=== PATIENT | male | born 1940 | race Caucasian/White ===

== ENCOUNTER 2017-07-03 14:08 | Observation (INO) | payer OTHER, MEDICARE ==
[~2017-07-03] VITALS: Ht 188 cm; Wt 109.1 kg
[2017-07-03 14:19] VITALS: BP 120/69; PULSE 59; RESP 16; O2SAT 97
[2017-07-03 14:32] LABS: BASOPHILS % (AUTO) 0 % (0-3); EOSINOPHILS % (AUTO) 1.2 % (0-5); MONOCYTES % (AUTO) 6.7 % (4-12); Mean Corpuscular Volume 93.7 fL (81-100); NEUTROPHILS % (AUTO) 71.8 % (40-74); Platelet Count 192 bil/L (150-400)
[2017-07-03 14:46] LABS: INR 2.86 ratio
--- NOTE | 2017-07-03 14:48 | ED.REPORT ---
HPI-Syncope Date of Service Jul 03, 2017 ED Provider: Chantel Villareal History of Present Illness: passed out at drive in on [email or web address]. did not have lunch. diabetic, on metformin. denies diaphorsis positive nausea. coumadin 5 mg daily except saturday and saturday takes 2.5 INR on Saturday was 2.8 was in the range has a-fib. oanh is primary care in [facility]. Is working on selling family home, then will return. out briefly. Woke to someone asking him if he was ok. WAs not feeling well before episode but did not sit down. Nursing Notes Stated Complaint: SYNCOPE Chief Complaint: General Complaint Nursing Notes Reviewed: Yes Allergies: Coded Allergies: Contrast Media (Verified Allergy, Mild, 07/03/17) Scheduled Allopurinol (Allopurinol) 300 Mg Tablet 300 MG PO DAILY Aspirin (Aspirin) 81 Mg Tablet 81 MG PO DAILY Flecainide Acetate (Flecainide Acetate) 100 Mg Tablet 100 MG PO BID Levothyroxine (Levothyroxine) 75 Mcg Tablet 75 MCG PO DAILY Metformin ER (Metformin ER) 1,000 Mg Tablet 1,000 MG PO BIDWM Metoprolol Succinate ER (Metoprolol Succinate ER) 50 Mg Tab.er.24h 50 MG PO DAILYWD Rosuvastatin Calcium (Crestor) 40 Mg Tablet 40 MG PO DAILY Tamsulosin (Flomax) 0.4 Mg Capsule 0.4 MG PO QPM Valsartan (Valsartan) 320 Mg Tablet 320 MG PO DAILY Warfarin Sodium (Warfarin Sodium) 5 Mg Tablet 5 MG PO ALL OTHER DAYS Warfarin Sodium (Warfarin Sodium) 2.5 Mg Tablet 2.5 MG PO , SAT General Time Seen by Provider: 13:00 Chief Complaint Collapsed suddenly Hx Obtained From: Patient Onset Occurred: Just prior to arrival Symptom Duration: Since onset Past Medical History Past Medical History Reports: Diabetes mellitus, Stroke (2013) Reports: Atrial fibrillation Past Surgical History vas, hernia, carpal tunnel Smoking History Never Smoker Social History Alcohol Use: Denies alcohol use Drug Use: Denies drug use Other Social History: Occupation lives in [facility] Ambulatory Status Independent Review of Systems Basic Review of Systems : No dysuria, No frequency Allergy / Immune: No allergy Physical Exam Initial Vital Signs Vital Signs (First) Date Time Temp Pulse Resp B/P Pulse Ox O2 Delivery O2 Flow Rate FiO2 07/03/17 14:19 36.6 59 16 120/69 97 Room Air Initial VS: Reviewed, Vital signs normal Head / Eyes: Atraumatic, Normocephalic, PERRL ENT: Mucous membranes moist, Conjunctiva normal, No scleral icterus Neck: Supple, Non-tender, Full range of motion Abdomen / GI: Soft, Non-tender, No guarding, No rebound, No distention Back: No CVA tenderness Lymphatic: No lymphadenopathy Upper Extremities: Vascular intact, Neuro intact, No swelling, No tenderness Skin: Warm, Dry, No cyanosis Psychiatric: Mood/affect normal, Behavior normal, Normal thought content General/Constitutional: Awake, Alert, No acute distress, Well appearing, Well developed, Well hydrated, Well nourished, Cooperative, Not toxic appearing has large abrasion on posterior head Respiratory / Chest: Atraumatic, Breath sounds NL, Breath sounds = bilat, No respiratory distress, No rales, No rhonchi, No wheezing Cardiovascular: Heart rate NL, Regular rhythm, Heart sounds NL, No gallop Lower Extremity / Pelvis / MS: Atraumatic, Inspection NL, Full range of motion , No swelling Neurologic: Oriented X3, Speech NL, No motor deficits, No sensory deficits, CN II - XII intact, Reflexes equal bilat, Cerebellar NL, Memory NL, Gait NL ENT: Atraumatic, Airway patent, Mucous membranes moist, Pharynx NL, No peritonsillar abscess Interpretation & Diagnostics Lab Results Interpretation Result Diagram: 07/04/17 0630 07/04/17 0630 Test 07/03/17 14:28 White Blood Count 8.1th/mm3 (3.8-10.1) Red Blood Count 4.44mil/mm3 (4.40-5.80) Mean Corpuscular Volume 93.7fL (81-100) Mean Corpuscular Hemoglobin 32.0pg (27.0-35.0) Mean Corpuscular Hemoglobin Concent 34.1% (32.0-37.0) Red Cell Distribution Width 13.2% (12.3-15.4) Platelet Count 192bil/L (150-400) Neutrophils (%) (Auto) 71.8% (40-74) Lymphocytes (%) (Auto) 19.9% (14-46) Monocytes (%) (Auto) 6.7% (4-12) Eosinophils (%) (Auto) 1.2% (0-5) Basophils (%) (Auto) 0% (0-3) Prothrombin Time 31.3sec (8.1-12.5) Prothromb Time International Ratio 2.86ratio Total Bilirubin 0.7mg/dL (0.0-1.2) Aspartate Amino Transf (AST/SGOT) 26U/L (0-50) Alanine Aminotransferase (ALT/SGPT) 23U/L (0-44) Alkaline Phosphatase 61U/L (25-160) Troponin T < 0.010ug/L (0.0-0.011) Total Protein 6.8g/dL (6.4-8.4) Albumin 4.1g/dL (3.4-5.0) Thyroid Stimulating Hormone (TSH) 2.750uIU/mL (0.450-4.500) CT Head Interpretation PROCEDURE: CT BRAIN WITHOUT CONTRAST ([id number]) INDICATIONS: FALL ON COUMADIN TECHNIQUE: Noncontrast 4.5 mm thick angled axial sections acquired from the foramen magnum to the vertex, with coronal reformats. COMPARISON: None. FINDINGS: Image quality: Excellent. CSF spaces: Basal cisterns are patent. No extra-axial fluid collections. The ventricles are symmetric in size and shape. Brain: No intracranial bleeds or masses. There is a 30 mm diameter subacute versus chronic infarct within the left temporoparietal lobe. There is cerebral volume loss for age, with resultant ventricular and sulcal prominence. There are periventricular and deep white matter chronic small vessel ischemic changes. There is intracranial internal carotid artery atherosclerosis. Skull and face: Calvarium and visualized facial bones appear intact, without suspicious lesions. Subgaleal hematoma overlies the right superior parietal calvarium with no evidence of underlying acute calvarial nor intracranial process. Sinuses: Chronic mucoperiosteal thickening involves the right maxillary sinus. Sinuses and mastoids are otherwise clear. IMPRESSION: 1. No acute intracranial abnormality. 2. 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 3. Right maxillary sinusitis. Dictated by: Toña Campos M.D. on 07/03/2017 at 15:22 Approved by: Toña Campos M.D. on 07/03/2017 at 15:23 Procedures Laceration Management Time: 14:00 Consent / Setup / Site Prep: Informed consent provided, Consent from patient , Hand hygiene observed, Stand sterile technique Wound Length: 3 cm Local Anesthesia: Lidocaine w epi 1%, 5cc, 27g needle Digital Block: No Wound Preparation: Normal saline Undermining / Margins: Flaps aligned Repair Skin: Rolla # Sutures - Skin: 6 Post-Procedure / Complications: Antibiotic oint applied, Dressing applied, No complications, Condition improved, Tolerated procedure well, Patient stable Re-Eval/Medical Decision Med Decision/Clinical Course 77 year old male with episode of syncope earlier today. Patient feel he regained conscious quickly. Patient lives in [facility] and is here getting the family home ready to sell. On coumadin for A fib. States he takes 14 other medication of which he does not remember. INR at 2.8. CT shows old infarct. Troponin is negative admit for monitoring. No sign of acute coronary process. Discharge & Departure Impression: Primary Impression: Syncope and collapse Disposition: ADMITTED TO HOSPITAL EDSupervising Provider for APC: Eliazar Merlos MD Attending Statement Discussed patient with LINDSAY Villareal. I evaluated the patient independently and agree with plan as above. In brief 77-year-old male history of CVA in the past on Coumadin presenting status post syncopal event and head trauma. His CT shows subacute versus chronic CVA. He will be admitted for syncopal workup stroke workup and monitoring. copies to: OTHER,PHYSICIAN Chantel Villareal Jul 03, 2017 14:47 Eliazar Merlos MD Jul 03, 2017 16:02 , Hand hygiene observed, Stand sterile technique Wound Length: 3 cm Local Anesthesia: Lidocaine w epi 1%, 5cc, 27g needle Digital Block: No Wound Preparation: Normal saline Undermining / Margins: Flaps aligned Repair Skin: Rolla # Sutures - Skin: 6 Post-Procedure / Complications: Antibiotic oint applied, Dressing applied, No complications, Condition improved, Tolerated procedure well, Patient stable Re-Eval/Medical Decision Med Decision/Clinical Course 77 year old male with episode of syncope earlier today. Patient feel he regained conscious quickly. Patient lives in [facility] and is here getting the family home ready to sell. On coumadin for A fib. States he takes 14 other medication of which he does not remember. INR at 2.8. CT shows old infarct. Troponin is negative admit for monitoring. No sign of acute coronary process. Discharge & Departure Impression: Primary Impression: Syncope and collapse Disposition: ADMITTED TO HOSPITAL EDSupervising Provider for APC: Eliazar Merlos MD Attending Statement Discussed patient with LINDSAY Villareal. I evaluated the patient independently and agree with plan as above. In brief 77-year-old male history of CVA in the past on Coumadin presenting status post syncopal event and head trauma. His CT shows subacute versus chronic CVA. He will be admitted for syncopal workup stroke workup and monitoring. copies to: OTHER,PHYSICIAN Chantel Villareal Jul 03, 2017 14:47 Eliazar Merlos MD Jul 03, 2017 16:02
--- NOTE | 2017-07-03 15:25 | DRSVH ---
PROCEDURE: CT BRAIN WITHOUT CONTRAST ([id number]) INDICATIONS: FALL ON COUMADIN TECHNIQUE: Noncontrast 4.5 mm thick angled axial sections acquired from the foramen magnum to the vertex, with c oronal reformats. COMPARISON: None. FINDINGS: Image quality: Excellent. CSF spaces: Basal cisterns are patent. No extra-axial fluid collections. The ventricles are symmet rosi in size and shape. Brain: No intracranial bleeds or masses. There is a 30 mm diameter subacute versus chronic infarct within the left temporoparietal lobe. There is cerebral volume loss for age, with resultant ventricul ar and sulcal prominence. There are periventricular and deep white matter chronic small vessel ische lelo changes. There is intracranial internal carotid artery atherosclerosis. Skull and face: Calvarium and visualized facial bones appear intact, without suspicious lesions. Salter bgaleal hematoma overlies the right superior parietal calvarium with no evidence of underlying acute calvarial nor intracranial process. Sinuses: Chronic mucoperiosteal thickening involves the right maxillary sinus. Sinuses and mastoids a re otherwise clear. IMPRESSION: 1. No acute intracranial abnormality. 2. 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 3. Right maxillary sinusitis. Dictated by: Toña Campos M.D. on 07/03/2017 at 15:22 Approved by: Toña Campos M.D. on 07/03/2017 at 15:23
[2017-07-03 16:25] VITALS: BP 142/77; PULSE 79; RESP 20; O2SAT 94
[2017-07-03] MEDS ORDERED: ROSU40TA PO (18:44)
[2017-07-03] MEDS ORDERED: WARF2.5T82 PO (18:44)
[2017-07-03] MEDS ORDERED: LEVO75TA4 PO (18:44)
[2017-07-03] MEDS ORDERED: ALLO300T2 PO (18:44)
[2017-07-03] MEDS ORDERED: ASPI-973 PO (18:44)
[2017-07-03] MEDS ORDERED: VALS320T12 PO (18:44)
[2017-07-03] MEDS ORDERED: METF-496 PO (18:44)
[2017-07-03] MEDS ORDERED: METO-272 PO (18:44)
[2017-07-03] MEDS ORDERED: TAMS0.4C98 PO (18:44)
[2017-07-03] MEDS ORDERED: WARF5TAB7 PO (18:44)
[2017-07-03] MEDS ORDERED: FLEC100T2 PO (18:44)
[2017-07-03 19:51] VITALS: BP 143/73; PULSE 63; RESP 19; O2SAT 100
[2017-07-03] MEDS ORDERED: Polyethylene Glycol (PEG) 17 Gm Powder PO PRN (19:55)
[2017-07-03] MEDS ORDERED: Alum-Mag Hydrox-Simeth 30 mL Suspension PO PRN (19:55)
[2017-07-03] MEDS ORDERED: Ondansetron 2 mg/mL 2 mL Inj IVPUSH PRN (19:55)
[2017-07-03 20:00] VITALS: BP 143/73; PULSE 63; RESP 19; O2SAT 100
[2017-07-03 20:16] VITALS: BP 155/80; PULSE 60; RESP 18; O2SAT 98
--- NOTE | 2017-07-03 22:53 | NUR ---
Admit to room 3023@2100 with syncope. Pain 1 VSS Pulse 58 97% on RA. Oriented to room and POC on whiteboard.
--- NOTE | 2017-07-03 23:24 | PCM.HPMED ---
Subjective Date of Service Jul 03, 2017 Primary Provider: Admitting Physician: Jeremias Jean MD Primary Care Physician: Other,Physician Attending Physician: Jeremias Jean MD Chief Complaint: Syncopal event with head trauma on Coumadin History of Present Illness: 77-year-old gentleman with 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 Patient reports he was feeling "not right" which he interpreted as having low blood sugar. He says he went to lean forward on the counter and remembers waking up with somebody sitting next to him asking if he was okay. He has never had a syncopal event before. He did hit his head and has an abrasion on his superior occiput. He denied having any chest pain, shortness of breath, lightheadedness or dizziness, no nausea vomiting or diarrhea but did state he felt "weird" in his stomach prior to him losing consciousness. He is a resident of [facility] he is up in the area to sell his home on [address] [facility], he denies being out in the sun for long periods of time or doing strenuous work. The last few days he states he has been having difficulty urinating, urine is passing is dark in color and has a very pungent odor. He states he drank plenty of water did not go long periods without consuming anything. On presentation to the emergency department pulse were stable. Hematology's unremarkable, BUN 32, glucose 127, otherwise CMP unremarkable. Troponin negative. INR 2.8 EKG: Heart rate 54, sinus rhythm, NM interval 236 QTC 458, normal axis, no signs of acute infarct or ischemia. Head CT negative for acute bleed, "subacute versus chronic left temporoparietal lobe infarct." Patient to be admitted for observation with repeat head CT in the morning given head trauma from ground-level fall while therapeutic on warfarin. Review of Systems: A comprehensive review of systems was conducted with the patient and found to be negative except as above in the history of presenting illness. Allergies Coded Allergies: Contrast Media (Verified Allergy, Mild, 07/03/17) Home Medications Allopurinol (Allopurinol) 300 Mg Tablet 300 MG PO DAILY Aspirin (Aspirin) 81 Mg Tablet 81 MG PO DAILY Flecainide Acetate (Flecainide Acetate) 100 Mg Tablet 100 MG PO BID Levothyroxine (Levothyroxine) 75 Mcg Tablet 75 MCG PO DAILY Metformin ER (Metformin ER) 1,000 Mg Tablet 1,000 MG PO BIDWM Metoprolol Succinate ER (Metoprolol Succinate ER) 50 Mg Tab.er.24h 50 MG PO DAILYWD Rosuvastatin Calcium (Crestor) 40 Mg Tablet 40 MG PO DAILY Tamsulosin (Flomax) 0.4 Mg Capsule 0.4 MG PO QPM Valsartan (Valsartan) 320 Mg Tablet 320 MG PO DAILY Warfarin Sodium (Warfarin Sodium) 5 Mg Tablet 5 MG PO ALL OTHER DAYS Warfarin Sodium (Warfarin Sodium) 2.5 Mg Tablet 2.5 MG PO TUES, SAT PMH CVA Atrial fibrillation on anticoagulation Hyperlipidemia Hypertension BPH Diabetes type II non-insulin using Surgical History Bilateral hip replacement Family History Father "circulation failure" at 65 Mom large cell carcinoma at age 65 Social History Occupation: [employer] Hx Alcohol Use: No Hx Substance Use: No Hx Tobacco Use: No Smoking Status: Never Smoker Additional Information Lives in [facility] in the area attempting to sell their family home on [address] [facility] Exam Vital Signs Vital Sign - Last Date Time Temp Pulse Resp B/P Pulse Ox O2 Delivery O2 Flow Rate FiO2 07/03/17 20:16 36.4 60 18 155/80 98 Room Air Exam General: Standing in room pacing. HEENT: Normocephalic, hemostatic abrasion to occipital superior scalp, dressed, mucous membranes moist, poor dentition, neck supple without lymphadenopathy. Cardiovascular: Regular rate and rhythm, no clicks murmurs rubs, peripheral pulses 2/4 equal bilaterally Pulmonary: Clear to auscultation bilaterally, no W/R/R. Abdominal: Rotund, Soft to palpation, bowel sounds present 4, no hepatosplenomegaly. Negative rebound. Extremities: No edema appreciated. No tenderness, asymmetry. Neuro: Neurologically grossly intact, strength is equal bilaterally upper and lower extremities. Cranial nerves II through XII grossly intact. MSK: Gait is normal, able to move extremities on their own volition, strength 5 out of 5 equal bilaterally to upper and lower extremities. Lab and Diagnostics Result Diagram: 07/03/17 1428 07/03/17 1428 X-Rays, CTs and MRIs Head CT noncontrast performed 07/03/2017 IMPRESSION: 1. No acute intracranial abnormality. 2. 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 3. Right maxillary sinusitis. Dictated by: Toña Campos M.D. on 07/03/2017 at 15:22 12-lead ECG EKG: Heart rate 54, sinus rhythm, NM interval 236 QTC 458, normal axis, no signs of acute infarct or ischemia. Assessment & Plan 77-year-old man with history of CVA, atrial fibrillation, diabetes type II non- insulin using an witnessed syncopal event with loss of consciousness less than 5 minutes while ordering lunch with resultant head trauma, negative head CT in the context of therapeutic INR. Acute witnessed Syncopal event loss of consciousness less than 5 minutes, present on admission, active Etiology includes cardiogenic, metabolic/endocrine, and hypovolemic during patient's medications are flecainide, being outside during the day in the summer heat, and description of feeling "weird" which he attributes to low blood sugar. He is also being treated for hypothyroidism which status of his unknown EKG showed first-degree heart block, bradycardia, possibly due to daily flecainide and metoprolol Blood glucose 127 and electrolytes were normal, recheck in the a.m. Repeat head CT noncontrast in the a.m. to assess for bleed due to therapeutic INR Troponin was negative. Hold aspirin until second CT demonstrates no head bleed First-degree heart block with bradycardia, present on admission, active NM interval 236 ms. Cannot say this is asymptomatic given his syncopal event. Repeat EKG in the morning before receiving a.m. flecainide and metoprolol Consider adjusting medications patient remains in heart block and bradycardic, instructed to follow-up with regional sales representative as an outpatient. Chronic atrial fibrillation, present on admission, stable Patient is in sinus bradycardia, [id number] records not available to assess if this is chronic INR therapeutic, Warfarin dosed by pharmacy At this time plan is to continue home medications flecainide metoprolol however as above EKG prior to receiving morning dose, follow-up with outpatient cardiology Ground-level fall resulting in head trauma. Present on admission. Active Witnessed ground-level fall, resulting in abrasion of occiput, therapeutic INR Head CT negative, with repeat CT as above Monitor overnight for any neurologic change suggesting intracranial bleed. Chronic hypertension, present on admission, active Initial blood pressure 120/69, this has risen to up to 155/80 at time of this documentation. Continue antihypertensive valsartan, and metoprolol. Chronic diabetes mellitus type II, non-insulin using, present on admission, active Patient is on metformin 1000 mg twice a day, serum glucose 127 in the ER. Chronic BPH, present on admission, active Patient describes increasing difficulty urinating, smaller volumes, increased frequency, darker color, and worsening smell. On tamsulosin 0.4 mg every afternoon Urine analysis, complete ordered. Chronic hyperlipidemia, present on admission, active Presumed stable Continue rosuvastatin. History of CVA, present on admission, stable No deficits found on today's exam Continue secondary prevention medications: Aspirin, rosuvastatin, warfarin. GI prophylaxis not indicated Pain management as needed DVT prophylaxis: Patient has therapeutic INR Patient is admitted to observational status with anticipated length of stay less than 2 minutes, based on exam findings, and anticipated complications. CODE STATUS discussed with patient, patient states he wants to be DNR/DNI. Conversation included use of any limited interventions, or modifications to ACLS , patient declined all. Pain Evaluation: Adequate Pain Control GI Prophylaxis: Not indicated VTE Prophylaxis: Theraputic Anticoag with Warfarin Resuscitation Status: DNR/DNI:Do Not Resuscitate/Intubate Attending Statement The patient was seen and examined together with Dr. Brambila on 07/03 and I agree with the history, exam and plan as outlined in the note above. Jaylen Elizondo DO Jul 03, 2017 20:41 Jeremias Jean MD Jul 03, 2017 23:38
[2017-07-04] VITALS (8 sets, daily range): BP systolic 141–168; BP diastolic 59–83; PULSE 49–63; RESP 14–16; O2SAT 96–97
[2017-07-04] MEDS ORDERED: METFORMIN 1000 MG PO SCH (08:00)
[2017-07-04] MEDS ORDERED: VALSARTAN 320 MG PO SCH (08:30)
[2017-07-04] MEDS: metFORMIN ER 500 mg ER24 Tablet PO SCH ×2 (08:45→18:07)
[2017-07-04 10:20] LABS: APPEARANCE,URINE CLEAR (CLEAR,HAZY); COLOR,URINE YELLOW (YELLOW); OCCULT BLOOD,URINE SMALL (NEGATIVE); UROBILINOGEN,URINE NORMAL (NORMAL)
--- NOTE | 2017-07-04 11:07 | NUR ---
Social Work-initial assessment: Data:See initial assessment. Pt is a 77 y/o male who was admitted on 07/03/17 for syncope per H&P. Pt's insurance is [facility] and PCP Is Dr. Barth. EMR reviewed. Pt's readmission score is 2. SW met with pt to discuss discharge planning, SW role explained. Pt is alert and oriented x3. Pt resides at home with his in [place] and is up working on his house on [address]. Pt does not use any DME and drives. Pt has no HH Or SNF history. Pt has no white hat hacker care insurance or VA benefits. Pt has completed DPOA/ advanced directive, pt confirms he has completed this, SW encouraged a copy to be brought in. Pt confirms his local friend can provide transport home. SW provided pt with discharge planning checklist and encouraged him to call with any questions, phone number provided. Pt discussed in multidisciplinary rounds, no concerns noted around pt's capacity for self care, pt able to ambulate independently and follow instructions. No anticipated discharge needs. SW will continue to follow if needs arise. Assessment:Pt who is independent at baseline. Plan:Pt to discharge home when medically stable via POV. No anticipated discharge needs. SW will continue to follow if needs arise. KERRI Rodriguez Addendum: 07/04/17 at 1115 by BETO CORREA SS Amended: Links added.
--- NOTE | 2017-07-04 12:42 | PCM.PNMED ---
Subjective Date of Service Jul 04, 2017 Subjective Patient states that he has had residual vision, speech issues after stroke. He feels to be in general all over. He denies prior episodes of syncope. He states that he takes his medications at a certain time. He does not like the way his medications are being given here. I have spent a lot of time with this patient obtaining his PCP information. His PCP is Dr. irina Barth [phone]. He also has a bead wire insulator by name Dr. Paul Cole, [facility] in [facility]. I have discussed all tests that are ordered to this with this patient. Canceled MRI of brain due to his concern for MRI contrast. He appears to have memory deficits especially with recalling his clinic names Patient does not seem to be trusting the hospital, repeatedly asking questions about his medications. I was asked to see him again later in the day, patient demanded to know his test results, results of his brain MRI were shared with him. I have told him that his medication flecainide was held on the recommendation of Dr. Balderas given his EKG changes, but patient is not convinced, he wants to see the bead wire insulator. He also does not understand why the medications written to him by his bead wire insulator would need to be changed in anyway. States "atrial fibrillation not fun". I have also discussed with him that I requested his records from his doctors in [place], which we have not received so far. He is also very irritated for having to stay in the hospital, but understands that if he signed out AMA, he would have to pay for his own medical costs, which seems to be making him even more irritated. Exam Vital Signs Vital Sign - Last Date Time Temp Pulse Resp B/P Pulse Ox O2 Delivery O2 Flow Rate FiO2 07/04/17 10:49 55 07/04/17 08:34 36.6 16 168/74 97 Room Air Intake and Output 07/03/17 07/03/17 07/04/17 Cumulative From/Thru 15:00 23:00 07:00 07/03/17 14:19 - 07/04/17 06:25 Intake Total 280 ml 280 ml Output Total 900 ml 900 ml Balance -620 ml -620 ml Intake Oral 280 ml 280 ml Output Urine Total 900 ml 900 ml # Voids 1 1 # Bowel Movements 0 0 Exam General: Standing in room HEENT: Normocephalic, hemostatic abrasion to occipital superior scalp, dried blood. No active seeping, mucous membranes moist, poor dentition Cardiovascular: Regular rate and rhythm, no clicks murmurs rubs, peripheral pulses 2/4 equal bilaterally Pulmonary: Clear to auscultation bilaterally, no W/R/R. Abdominal: Nondistended Extremities: Left leg edema greater than right appreciated. No tenderness, asymmetry. Neuro: Neurologically grossly intact, cranial nerve exam grossly normal negative Romberg's, negative Babinski. MSK: Gait is normal, able to move extremities on their own volition, strength 5 out of 5 equal bilaterally to upper and lower extremities. IVs and Medications Medications Reviewed: Medications were reviewed in detail Lab and Diagnostics Result Diagram: 07/03/17 1428 07/04/17 0630 X-Rays, CTs and MRIs Head CT noncontrast performed 07/03/2017 IMPRESSION: 1. No acute intracranial abnormality. 2. 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 3. Right maxillary sinusitis. Dictated by: Toña Campos M.D. on 07/03/2017 at 15:22 12-lead ECG EKG: Heart rate 54, sinus rhythm, ME interval 236 QTC 458, normal axis, no signs of acute infarct or ischemia. Assessment & Plan 77-year-old man with history of CVA, atrial fibrillation, diabetes type II non- insulin using an witnessed syncopal event with loss of consciousness less than 5 minutes while ordering lunch with resultant head trauma, negative head CT in the context of therapeutic INR. Acute witnessed Syncopal event loss of consciousness less than 5 minutes, present on admission, active Etiology includes cardiogenic, metabolic/endocrine, and hypovolemic during patient's medications are flecainide, being outside during the day in the summer heat, and description of feeling "weird" which he attributes to low blood sugar. He is also being treated for hypothyroidism which status of his unknown EKG showed first-degree heart block, bradycardia, possibly due to daily flecainide and metoprolol: Patient is not receptive to any changes to his medications. Will discuss his case with Dr. Cole, patient's bead wire insulator in the a.m. Blood glucose 127 and electrolytes were normal, recheck in the a.m. Troponin was negative. Ordered MRI of brain without contrast as he declined stroke protocol with contrast after I discussed the differences between CT contrast and MR contrast. Ordered ultrasound echo, ultrasound of carotids as we do not have any of his old records as yet Will consult Dr. Balderas/ cardiology in the a.m. officially First-degree heart block with bradycardia, present on admission, active ME interval 236 ms. Cannot say this is asymptomatic given his syncopal event. Repeat EKG in the morning before receiving a.m. flecainide and metoprolol Consider adjusting medications patient remains in heart block and bradycardic, instructed to follow-up with bead wire insulator as an outpatient: Discussed case with Dr. Sherrie weldon, who has recommended that we hold flecainide. Patient did not agree to this, he wants to see the bead wire insulator. Patient states his heart rate is always in the upper 40s to 50s, and he has no problems with that Will consult Dr. Balderas/ cardiology in the a.m. officially Chronic atrial fibrillation, present on admission, stable Patient is in sinus bradycardia, [id number] records not available to assess if this is chronic INR therapeutic, warfarin is held. At this time plan is to continue home medications flecainide metoprolol. follow-up with outpatient cardiology in the a.m. Will discuss resuming warfarin and aspirin with cardiology Ground-level fall resulting in head trauma. Present on admission. Active Witnessed ground-level fall, resulting in abrasion of occiput, therapeutic INR Head CT negative, with repeat CT as above Monitor overnight for any neurologic change suggesting intracranial bleed. Repeat h&h showed no concern for acute blood loss Chronic hypertension, present on admission, active Initial blood pressure 120/69, this has risen to up to 155/80 at time of this documentation. Continue antihypertensive valsartan, and metoprolol. Chronic diabetes mellitus type II, non-insulin using, present on admission, active Patient is on metformin 1000 mg twice a day, serum glucose 127 in the ER. Chronic BPH, present on admission, active Patient describes increasing difficulty urinating, smaller volumes, increased frequency, darker color, and worsening smell. On tamsulosin 0.4 mg every afternoon Urine analysis, complete ordered. Chronic hyperlipidemia, present on admission, active Presumed stable Continue rosuvastatin. History of CVA, present on admission, stable No deficits found on today's exam Continue secondary prevention medications: statin, currently holding aspirin and warfarin. GI prophylaxis not indicated Pain management as needed DVT prophylaxis: Patient has therapeutic INR Patient is admitted to observational status with anticipated length of stay less than 2 minutes, based on exam findings, and anticipated complications. CODE STATUS discussed with patient, patient states he wants to be DNR/DNI. Conversation included use of any limited interventions, or modifications to ACLS , patient declined all. GI Prophylaxis: Not indicated VTE Prophylaxis: Theraputic Anticoag with Warfarin Resuscitation Status: DNR/DNI:Do Not Resuscitate/Intubate Time spent 45 minutes Annalise Mcdonald DO Jul 04, 2017 12:13
--- NOTE | 2017-07-04 15:50 | NUR ---
Pt off floor for MRI
--- NOTE | 2017-07-04 15:57 | DRSVH ---
[facility] [address] [place] [address] Echocardiogram Report Name: FELICE WEAVER Study Date: 07/04/2017 Height: 74 in Hospital Exam Location: [facility] Weight: 240 lb Gender: Male BSA: 2.3 m2 : 1940 Age: 77 yrs BP: 168/74 mmHg Reason For Study: Syncope Ordering Physician: Marianna Fuentes Performed By: Kali Husain Referring Physician: BRICE ELLIOTT Interpretation Summary Mild concentric left ventricular hypertrophy with ejection fraction 60-65%. Grade II diastolic dysfunction. Mild biatrial enlargement. Mild aortic valve sclerosis. The right ventricular systolic pressure is estimated at 25 mmHg assuming a right atrial pressure of 3 mm Hg. Mild-moderately enlarged ascending aorta. Procedure: A two-dimensional transthoracic echocardiogram with color flow and Doppler was performed. The study quality was technically adequate. There is no prior echocardiogram noted for this patient. The patient was in normal sinus rhythm during the exam. Left Ventricle: Left ventricular size is at the upper limits of normal. There is mild concentric left ventricular hypertrophy. The ejection fraction is estimated to be 60-65%. Left ventricular wall motion is normal. Assessment of diastolic parameters suggests a pseudonormalization pattern, consistent with elevated filling pressures. Right Ventricle: The right ventricle grossly appears normal in size with probable normal systolic function. Atria: There is mild biatrial enlargement. The interatrial septum is intact with no evidence for an atrial septal defect. Mitral Valve: The mitral valve is grossly normal. There is trace mitral regurgitation. Aortic Valve: There is mild aortic valve sclerosis. There is trace aortic regurgitation. Tricuspid Valve: The tricuspid valve is normal. There is trace tricuspid regurgitation. The right ventricular systolic pressure is estimated at 25 mmHg assuming a right atrial pressure of 3 mm Hg. Pulmonic Valve: The pulmonic valve is not well seen, but is grossly normal. There is a trace or physiologic amount of pulmonic regurgitation. Great Vessels: The aortic root is normal size. The ascending aorta is mild- moderately enlarged. The pulmonary artery is normal size. The IVC is of normal diameter and collapses greater than 50% with a sniff. This suggests a low right atrial pressure of 3 mm Hg. Pericardium/ Pleura There is no pericardial effusion. MMode/2D Measurements & Calculations LVIDd: 5.8 cm RA long axis LVOT diam: 2.5 cm LVIDs: 4.0 cm LA A2 area: 24.7 cm AoV Opening FS: 29.9 % LA A4 area: 24.5 cm RA area EPSS: 0.62 cm LA length (vol) Ao root diam IVSd: 1.2 cm : 26.2 cm LVPWd: 0.91 cm LA vol: 70.4 ml RA vol asc Aorta Diam LA vol index : 84.3 ml RA Ao Arch Diam (Prox : 35.9 mm2 Trans): 2.5 cm IVC diam: 1.8 cm LV garcía. diameter/BSA LV sys. diameter/BSA RVD1 (basal) TAPSE: 3.4 cm (cm/m^2): 2.4 (cm/m^2): 1.7 Doppler Measurements & Calculations Ao V2 max MV E max almas MV E/A: 1.3 TR max almas : 159.2 cm/sec : 93.9 cm/sec Med Peak E' Almas : 232.4 cm/sec Ao max P.1 mmHg MV A max almas TR max PG Ao mean P.7 mmHg : 70.6 cm/sec E/E' med: 19.8 : 21.6 mmHg LVOT Max Almas Lat Peak E' Almas PA V2 max : 93.6 cm/sec : 66.4 cm/sec E/E' lat: 11.6 PA mean PG ROMMEL(I,D): 2.9 cm E/e' average : 0.99 mmHg sev ratio: 0.59 MV dec time: 0.20 sec Ao V2 mean LV V1 max PG PA V2 mean : 113.6 cm/sec : 47.9 cm/sec Ao V2 VTI: 37.3 cmLV V1 VTI: 22.1 cm ROMMEL(V,D): 2.9 cm2 ROMMEL indexed to BSA (cm^2/m^2): 1.2 Electronically signed by: Fab Moore on Reading Physician:07/04/2017 03:56 PM
--- NOTE | 2017-07-04 17:04 | DRSVH ---
PROCEDURE: MRI BRAIN WITHOUT CONTRAST ([id number]) INDICATIONS: Syncopal episode, evalute for stroke TECHNIQUE: Non-contrast axial T1 spin echo, axial T2 fast spin echo, sagittal and axial FLAIR, coronal T2 fast s pin echo, axial gradient echo, axial diffusion and ADC through the brain. COMPARISON: [facility], CT, CT BRAIN WO CON, 07/03/2017, 15:10. FINDINGS: Image quality: Excellent. CSF spaces: Ventricles appear symmetric in size and shape. Basal cisterns are patent. No extra-axi al fluid collections. Brain: No intracranial bleeds or mass effects. There is cerebral volume loss for age. There are mi ld periventricular and deep white matter chronic small vessel ischemic changes. Brainstem appears no rmal. Diffusion-weighted images show no acute ischemic insults. Old, small, infarct involving the le ft occipital lobe with surrounding gliosis is noted. Normal intravascular flow voids are present. Skull and face: Calvarial bone marrow is normal in signal. Orbits are normal. Metallic skin renzo noted in the right parietal scalp. Sinuses: Mucosal thickening is noted in the right maxillary sinus. The mastoids are clear. IMPRESSION: 1. No acute intracranial disease process. 2. No areas of acute infarction. 3. Chronic, small left occipital lobe infarct with surrounding gliosis. 4. Mild, diffuse volume loss. 5. Mild periventricular and subcortical white matter chronic microvascular ischemic changes. 6. Right maxillary sinus mucosal thickening. Dictated by: Deb Preciado MD, PhD on 07/04/2017 at 16:54 Approved by: Deb Preciado MD, PhD on 07/04/2017 at 17:03
[2017-07-04] MEDS ORDERED: MeTOProlol XL 50 mg ER24 Tablet PO SCH (17:30)
[2017-07-04] MEDS: MeTOProlol XL 50 mg ER24 Tablet PO SCH (17:30)
--- NOTE | 2017-07-04 19:28 | NUR ---
Compliance Pt mostly friendly during shift, became agitated with AM medications. Wanting explanation of which medications are which several times after reviewing them the first time. Pt is very particular about taking medications at certain times. Pt declined Flomax during AM time, requested to take during evening before bed. Pharmacy called for request. Pt also very upset during evening about DRs holding heart medications. paged to speak with pt. NOC shift to continue with pt care.
--- NOTE | 2017-07-04 20:44 | DRSVH ---
PROCEDURE: US BILATERAL DUPLEX DOPPLER IMAGING OF THE CAROTIDS ([id number]) INDICATIONS: stroke work up TECHNIQUE: Color and pulse Doppler interrogation was performed of both carotid systems, with image documentation and velocity measurements. COMPARISON: None. FINDINGS: All stenosis calculations are based on NASCET criteria. Right side: Brachial blood pressure: 143/73 mm Hg. Common Carotid Artery(Distal) PSV: 96 cm/s Internal Carotid Artery PSV- Proximal: 62.70 cm/s Mid-lon.40 cm/s Distal: 115.30 cm/s EDV - Proximal: 14.90 cm/s Mid-lon.10 cm/s Distal: 24.40 cm/s External Carotid Artery(Proximal) PSV: 68.80 cm/s ICA/CCA PSV ratio: 1.3 Almanzar scale imaging description: Minimal plaque. Right internal carotid artery is tortuous and likely accounts for mild increase in systolic velocities. Percent internal carotid artery stenosis: Less than 50% stenosis. Vertebral artery: Flow direction is antegrade. Left side: Brachial blood pressure: 149/69 mm Hg. Common Carotid Artery(Distal) PSV: 81.80 cm/s Internal Carotid Artery PSV - Proximal: 55 cm/s Mid-lon.90 cm/s Distal: 52.90 cm/s EDV - Proximal: 8.70 cm/s Mid-lon.10 cm/s Distal: 14.60 cm/s External Carotid Artery(Proximal) PSV: 66.80 cm/s ICA/CCA PSV ratio: 20 Almanzar scale imaging description: Minimal plaque. Percent internal carotid artery stenosis: Less than 50% stenosis. Vertebral artery: Flow direction is antegrade. IMPRESSION: Less than 50% bilateral internal carotid artery stenosis. Dictated by: Greg Romero [facility] Interpreted: Rangel Baca MD on 07/04/2017 at 15:59 Approved by: Rangel Baca M.D. on 07/04/2017 at 20:41
[2017-07-05] VITALS (8 sets, daily range): BP systolic 113–161; BP diastolic 67–77; PULSE 50–81; RESP 16–20; O2SAT 94–98
--- NOTE | 2017-07-05 01:28 | NUR ---
Flecainide / Mentation Patient apologetic over discussion with a MD last shift. He stated he was opposed to missing a single dose of Flecainide and felt he "unloaded on" the doctor for just doing her job. After Flecainide was added back to the eMAR he stated he doesn't want to take now and will adhere to the MD's recommendations.
[2017-07-05] MEDS: metFORMIN ER 500 mg ER24 Tablet PO SCH ×2 (08:08→16:54)
[2017-07-05 09:42] LABS: INR 2.73 ratio
--- NOTE | 2017-07-05 11:10 | PCM.CONPHA ---
Subjective Date of Service: Jul 05, 2017 Warfarin dosing Reason for Pharmacy Consult: Anticoagulation Management Objective Vital Signs Date Time Temp Pulse Resp B/P Pulse Ox O2 Delivery O2 Flow Rate FiO2 07/05/17 09:18 36.3 67 16 143/75 94 Room Air 07/05/17 05:56 36.5 50 16 160/73 95 Room Air 07/05/17 05:18 50 07/05/17 01:00 36.5 52 16 161/77 98 Room Air 07/04/17 21:44 36.5 49 16 167/83 96 Room Air 07/04/17 16:37 36.8 58 16 158/69 96 Room Air 07/04/17 12:47 36.7 63 14 149/69 97 Room Air Intake and Output 07/03/17 07/04/17 07/05/17 00:00 00:00 00:00 Intake Total 880 ml Output Total 1650 ml Balance -770 ml Weight (Kilograms): 109.100 Height (Feet): 6 Height (Inches): 2.00 Test 07/03/17 14:28 07/04/17 06:30 07/04/17 09:35 07/05/17 09:05 White Blood Count 8.1th/mm3 (3.8-10.1) Red Blood Count 4.44mil/mm3 (4.40-5.80) Mean Corpuscular Volume 93.7fL (81-100) Mean Corpuscular Hemoglobin 32.0pg (27.0-35.0) Mean Corpuscular Hemoglobin Concent 34.1% (32.0-37.0) Red Cell Distribution Width 13.2% (12.3-15.4) Platelet Count 192bil/L (150-400) Neutrophils (%) (Auto) 71.8% (40-74) Lymphocytes (%) (Auto) 19.9% (14-46) Monocytes (%) (Auto) 6.7% (4-12) Eosinophils (%) (Auto) 1.2% (0-5) Basophils (%) (Auto) 0% (0-3) Total Bilirubin 0.7mg/dL (0.0-1.2) Aspartate Amino Transf (AST/SGOT) 26U/L (0-50) Alanine Aminotransferase (ALT/SGPT) 23U/L (0-44) Alkaline Phosphatase 61U/L (25-160) Troponin T < 0.010ug/L (0.0-0.011) Total Protein 6.8g/dL (6.4-8.4) Albumin 4.1g/dL (3.4-5.0) Thyroid Stimulating Hormone (TSH) 2.750uIU/mL (0.450-4.500) Sodium Level 142mEq/L (134-144) Potassium Level 4.3mEq/L (3.5-5.2) Chloride Level 103mEq/L (97-108) Carbon Dioxide Level 27mmol/L (18-29) Blood Urea Nitrogen 33mg/dL (8-27) Creatinine 0.93mg/dL (0.76-1.27) Estimat Glomerular Filtration Rate 84mL/min (>59) Glucose Level 103mg/dL (60-99) Calcium Level 8.5mg/dL (8.5-10.1) Urine Color Yellow (YELLOW) Urine Appearance Clear (CLEAR,HAZY) Urine pH 6.0 (5.0-8.0) Urine Specific [place] 1.010 (1.003-1.035) Urine Protein Negativemg/dL (NEG,TRACE) Urine Glucose (UA) Negativemg/dL (NEGATIVE) Urine Ketones Negativemg/dL (NEGATIVE) Urine Occult Blood Small (NEGATIVE) Urine Nitrite Negative (NEGATIVE) Urine Bilirubin Negative (NEGATIVE) Urine Urobilinogen Normalmg/dL (NORMAL) Urine Leukocyte Esterase Negative (NEGATIVE) Urine RBC 3-10/hpf (0-2) Urine WBC 0-5/hpf (0-5) Urine Epithelial Cells Occasional/hpf (NONE-MOD) Urine Crystals None seen (NONE SEEN) Urine Bacteria None/hpf (NONE-FEW) Urine Hyaline Casts None/lpf (NONE) Urine Granular Casts Occasional (NONE SEEN) Urine Waxy Casts None seen (NONE SEEN) Urine Red Blood Cell Casts None seen (NONE SEEN) Urine White Blood Cell Casts None seen (NONE SEEN) Urine Mucus None seen (None Seen) Urine Trichomonas None seen (NONE SEEN) Urine Yeast None (NONE SEEN) Urinalysis Comment None Urine Culture Reflexed Not indicated Hemoglobin 14.2g/dL (13.8-17.2) Hematocrit 42.5% (41.0-50.0) Prothrombin Time 29.8sec (8.1-12.5) Prothromb Time International Ratio 2.73ratio Assessment/Plan Assessment/Plan Date INR 2.73 INR change Warf Dose 5mg Ines Garcia PharmD Jul 05, 2017 11:10
--- NOTE | 2017-07-05 12:21 | NUR ---
Patient daily update Patient alert and oriented X3 with periods of forgetfulness. Patient reviewed morning medications with nurse and took medications as ordered. Patient denied any dizziness or pain. He did have slight pain when lacerations on head was touched, but not when left alone. MD notified nurse of contact made with patients terminal operations supervisor in [place]. Nurse informed patient he would continue to take Flecainide and Coumadin, but reduce metoprolol to 12.5mg and hold aspirin until he can see a terminal operations supervisor. Patient was agreeable with this information. Patient was also informed of Cardiology consult that was ordered. Patient has been cooperative and pleasant today.
[2017-07-05] MEDS: MeTOProlol XL 50 mg ER24 Tablet PO SCH (16:53)
--- NOTE | 2017-07-06 00:09 | PCM.PNMED ---
Subjective Date of Service Jul 05, 2017 Subjective Patient is much more agreeable to our management today. He states that he is happy with everything that has done so far. Looking forward to going home tomorrow Exam Vital Signs Vital Sign - Last Date Time Temp Pulse Resp B/P Pulse Ox O2 Delivery O2 Flow Rate FiO2 07/05/17 21:06 36.4 70 18 125/77 96 Room Air Intake and Output 07/04/17 07/04/17 07/05/17 Cumulative From/Thru 14:59 22:59 06:59 07/03/17 14:19 - 07/04/17 17:46 Intake Total 600 ml 880 ml Output Total 750 ml 1650 ml Balance -150 ml -770 ml Intake Oral 600 ml 880 ml Output Urine Total 750 ml 1650 ml # Voids 1 # Bowel Movements 0 Exam Gen.: No acute distress, pacing in room HEENT: Normocephalic, atraumatic Heart: Negative for murmurs regular rate and rhythm Lungs: Clear to auscultation no crackles or wheezes Abdomen nondistended Extremities: Negative edema Neurological: No deficits, alert and oriented by 3 Psych: Negative for anger and agitation IVs and Medications Medications Reviewed: Medications were reviewed in detail Lab and Diagnostics Result Diagram: 07/05/17 0905 07/04/17 0630 X-Rays, CTs and MRIs Head CT noncontrast performed 07/03/2017 IMPRESSION: 1. No acute intracranial abnormality. 2. 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 3. Right maxillary sinusitis. Dictated by: Toña Campos M.D. on 07/03/2017 at 15:22 12-lead ECG EKG: Heart rate 54, sinus rhythm, MS interval 236 QTC 458, normal axis, no signs of acute infarct or ischemia. Assessment & Plan 77-year-old man with history of CVA, atrial fibrillation, diabetes type II non- insulin using an witnessed syncopal event with loss of consciousness less than 5 minutes while ordering lunch with resultant head trauma, negative head CT in the context of therapeutic INR. Acute witnessed Syncopal event loss of consciousness less than 5 minutes, present on admission, active Etiology includes cardiogenic, metabolic/endocrine, and hypovolemic during patient's medications are flecainide, being outside during the day in the summer heat, and description of feeling "weird" which he attributes to low blood sugar. He is also being treated for hypothyroidism which status of his unknown EKG showed first-degree heart block, bradycardia, possibly due to daily flecainide and metoprolol: Patient is not receptive to any changes to his medications. Will discuss his case with Dr. Cole, patient's hull drafter in the a.m. Blood glucose 127 and electrolytes were normal, recheck in the a.m. Troponin was negative. Ordered MRI of brain without contrast as he declined stroke protocol with contrast after I discussed the differences between CT contrast and MR contrast. MRI of brain is negative for acute stroke (though this is a limited study as patient did not agree to| stroke protocol) Ordered ultrasound echo, ultrasound of carotids : The Carotids Is Negative for Severe Stenosis, ultrasound showed Mild concentric left ventricular hypertrophy with ejection fraction 60-65%. Grade II diastolic dysfunction. Patient should not drive a motor vehicle until cleared by his hull drafter Orthostatics are ordered a and negative Every 4 neurological checks First-degree heart block with bradycardia, present on admission, active MS interval 236 ms. Cannot say this is asymptomatic given his syncopal event. Metoprolol dose is adjusted to 37.5 mg long-acting daily. Chronic atrial fibrillation, present on admission, stable Patient is in sinus bradycardia, [id number] records not available to assess if this is chronic INR therapeutic, warfarin is restarted on 07/06 Discussed patient's case with patient's hull drafter Dr. Cole at [facility] in [facility]. He suggests that we adjust patient's metoprolol and flecainide alone. He also agrees that aspirin can be held. Coumadin can be restarted. Dr. Cole will address aspirin when patient returns for follow -up. I have asked Dr. Cole to send records to our hospital, after this couple of visit notes were sent. I have reviewed them personally. Discussed case with Dr. Rosales from cardiology, who agrees with adjusting the Toprol dose leaving flecainide alone. He also agrees that aspirin can be held. He sees no need for aspirin at this time Ground-level fall resulting in head trauma. Present on admission. Active Witnessed ground-level fall, resulting in abrasion of occiput, therapeutic INR Head CT negative Monitor overnight for any neurologic change suggesting intracranial bleed. Repeat h&h showed no concern for acute blood loss Chronic hypertension, present on admission, active Initial blood pressure 120/69, this has risen to up to 155/80 at time of this documentation. Continue antihypertensive valsartan, and metoprolol. I discussed my plan to give him metoprolol 37. 5 in the AM, he is agreeable to this, he did tell me that he used to take higher dose of metoprolol and his dose has been reduced by his hull drafter in the past Chronic diabetes mellitus type II, non-insulin using, present on admission, active Patient is on metformin 1000 mg twice a day, serum glucose 127 in the ER. Chronic BPH, present on admission, active Patient describes increasing difficulty urinating, smaller volumes, increased frequency, darker color, and worsening smell. On tamsulosin 0.4 mg every afternoon Urine analysis, complete ordered. Chronic hyperlipidemia, present on admission, active Presumed stable Continue rosuvastatin. History of CVA, present on admission, stable No deficits found on today's exam Continue Coumadin per pharmacy Continue secondary prevention medications: statin, currently holding aspirin GI prophylaxis not indicated Pain management as needed DVT prophylaxis: Patient has therapeutic INR Patient is admitted to observational status with anticipated length of stay less than 2 minutes, based on exam findings, and anticipated complications. Patient will be discharged home tomorrow a.m. CODE STATUS discussed with patient, patient states he wants to be DNR/DNI. Conversation included use of any limited interventions, or modifications to ACLS , patient declined all. GI Prophylaxis: Not indicated VTE Prophylaxis: Theraputic Anticoag with Warfarin Resuscitation Status: DNR/DNI:Do Not Resuscitate/Intubate Time spent 25 minutes Annalise Mcdonald DO Jul 05, 2017 21:40
[2017-07-06 00:28] VITALS: BP 136/73; PULSE 67; RESP 18; O2SAT 96
[2017-07-06 04:57] VITALS: BP 153/82; PULSE 58; RESP 18; O2SAT 97
[2017-07-06 06:15] VITALS: PULSE 62
--- NOTE | 2017-07-06 06:17 | NUR ---
NOC PT up ad jalen in room. A/Ox3. Has slight STM impairment noted when speaking with nephew. Gait is steady and pt denies any dizziness. PT denies any pain. HEad laceration oozing tiny bit overnight,but it appears that pt may "fiddle" with it while sleeping, because it was dry all evening when awake. PT did c/o nausea for several hours and was given zofran with almost immediate resolution. PT voids per urinal. Takes all meds appropriately. Anxious to go home today. Tele has been sinus rhythm.
[2017-07-06 08:00] VITALS: PULSE 85
[2017-07-06] MEDS: metFORMIN ER 500 mg ER24 Tablet PO SCH (08:18)
[2017-07-06] MEDS ORDERED: METO25TA99 PO (08:51)
[2017-07-06 09:45] VITALS: BP 137/74; PULSE 63; RESP 18; O2SAT 98
[2017-07-06 10:04] LABS: INR 2.51 ratio
--- NOTE | 2017-07-06 10:47 | PCM.PHAPRO ---
Progress Warfarin dosing Date Jul 06 INR 2.73 2.51 INR change -0.22 Warf Dose 5mg 5 MG Jonathon Au Pharm.D Jul 06, 2017 10:47
--- NOTE | 2017-07-06 10:48 | PCM.DIMED ---
Discharge Instructions Date of Service Jul 06, 2017 Dates of Hospitalization Jul 03, 2017 at 19:16 Discharge Diagnosis Discharge Diagnosis syncope likely due to bradycardia, first degree AV block, afib, HTN, DM II Diet Discharge Diet: Heart Healthy Activity Discharge Activity: Limited until seen by PCP Call your provider Call your provider for: Fever or Chills, Shortness of breath, Bleeding, Chest pain, Vomitting, Excessive diarrhea, Weakness (unilateral) Patient Instructions Patient Instructions Please see Dr. Cole your tariff publishing agent in 7-10 [address]. [address] no drive a Motor Vehicle until you are cleared by your tariff publishing agent Please note changes to your metoprolol dosing Please hold your aspirin till you see Dr. Cole Follow-up plan F/U with Dr. Paul Cole tariff publishing agent in 7-10 days F/U INR in one week Annalise Mcdonald DO Jul 06, 2017 10:48
--- NOTE | 2017-07-06 10:50 | PCM.DC.MED ---
Discharge Summary Date of Service Jul 06, 2017 Dates of Hospitalization Date of Hospital Admission Jul 03, 2017 at 19:16 Date of Discharge: Jul 06, 2017 Providers: Admitting Physician: Jeremias Jean MD Primary Care Physician: Other,Physician Attending Physician: Annalise Elliott DO Diagnosis at Time of Discharge Diagnosis at Time of Discharge syncope likely due to bradycardia, first degree AV block, afib, HTN, DM II Consultations Dr. Rubén Cole, patient's fly maker via phone Dr. Rodriguez and Dr. Ricky weldon Procedures XRay, CTs & MRIs Head CT noncontrast performed 07/03/2017 IMPRESSION: 1. No acute intracranial abnormality. 2. 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 3. Right maxillary sinusitis. Dictated by: Toña Campos M.D. on 07/03/2017 at 15:22 ECG 12 Lead EKG: Heart rate 54, sinus rhythm, NC interval 236 QTC 458, normal axis, no signs of acute infarct or ischemia. Cardiac Echo Impression PROCEDURE: MRI BRAIN WITHOUT CONTRAST ([id number]) INDICATIONS: Syncopal episode, evalute for stroke IMPRESSION: 1. No acute intracranial disease process. 2. No areas of acute infarction. 3. Chronic, small left occipital lobe infarct with surrounding gliosis. 4. Mild, diffuse volume loss. 5. Mild periventricular and subcortical white matter chronic microvascular ischemic changes. 6. Right maxillary sinus mucosal thickening. Dictated by: Deb Preciado MD, PhD on 07/04/2017 at 16:54 Approved by: Deb Preciado MD, PhD on 07/04/2017 at 17:03 Echocardiogram Report Name: FELICE WEAVER Study Date: 07/04/2017 Height: 74 in Hospital Exam Location: [facility] Weight: 240 lb Gender: Male BSA: 2.3 m2 : 1940 Age: 77 yrs BP: 168/74 mmHg Reason For Study: Syncope Ordering Physician: Marianna Fuentes Performed By: Kali Husain Referring Physician: ANNALISE ELLIOTT Interpretation Summary Mild concentric left ventricular hypertrophy with ejection fraction 60-65%. Grade II diastolic dysfunction. Mild biatrial enlargement. Mild aortic valve sclerosis. The right ventricular systolic pressure is estimated at 25 mmHg assuming a right atrial pressure of 3 mm Hg. Mild-moderately enlarged ascending aorta. Procedure: A two-dimensional transthoracic echocardiogram with color flow and Doppler was performed. The study quality was technically adequate. There is no prior echocardiogram noted for this patient. The patient was in normal sinus rhythm during the exam. Left Ventricle: Left ventricular size is at the upper limits of normal. There is mild concentric left ventricular hypertrophy. The ejection fraction is estimated to be 60-65%. Left ventricular wall motion is normal. Assessment of diastolic parameters suggests a pseudonormalization pattern, consistent with elevated filling pressures. Right Ventricle: The right ventricle grossly appears normal in size with probable normal systolic function. Atria: There is mild biatrial enlargement. The interatrial septum is intact with no evidence for an atrial septal defect. Mitral Valve: The mitral valve is grossly normal. There is trace mitral regurgitation. Aortic Valve: There is mild aortic valve sclerosis. There is trace aortic regurgitation. Tricuspid Valve: The tricuspid valve is normal. There is trace tricuspid regurgitation. The right ventricular systolic pressure is estimated at 25 mmHg assuming a right atrial pressure of 3 mm Hg. Pulmonic Valve: The pulmonic valve is not well seen, but is grossly normal. There is a trace or physiologic amount of pulmonic regurgitation. Great Vessels: The aortic root is normal size. The ascending aorta is mild- moderately enlarged. The pulmonary artery is normal size. The IVC is of normal diameter and collapses greater than 50% with a sniff. This suggests a low right atrial pressure of 3 mm Hg. Pericardium/ Pleura There is no pericardial effusion. MMode/2D Measurements & Calculations LVIDd: 5.8 cm RA long axis LVOT diam: 2.5 cm LVIDs: 4.0 cm LA A2 area: 24.7 cm AoV Opening FS: 29.9 % LA A4 area: 24.5 cm RA area EPSS: 0.62 cm LA length (vol) Ao root diam IVSd: 1.2 cm : 26.2 cm LVPWd: 0.91 cm LA vol: 70.4 ml RA vol asc Aorta Diam LA vol index : 84.3 ml RA Ao Arch Diam (Prox : 35.9 mm2 Trans): 2.5 cm IVC diam: 1.8 cm LV garcía. diameter/BSA LV sys. diameter/BSA RVD1 (basal) TAPSE: 3.4 cm (cm/m^2): 2.4 (cm/m^2): 1.7 Doppler Measurements & Calculations Ao V2 max MV E max almas MV E/A: 1.3 TR max almas : 159.2 cm/sec : 93.9 cm/sec Med Peak E' Almas : 232.4 cm/sec Ao max P.1 mmHg MV A max almas TR max PG Ao mean P.7 mmHg : 70.6 cm/sec E/E' med: 19.8 : 21.6 mmHg LVOT Max Almas Lat Peak E' Almas PA V2 max : 93.6 cm/sec : 66.4 cm/sec E/E' lat: 11.6 PA mean PG ROMMEL(I,D): 2.9 cm E/e' average : 0.99 mmHg sev ratio: 0.59 MV dec time: 0.20 sec Ao V2 mean LV V1 max PG PA V2 mean : 113.6 cm/sec : 47.9 cm/sec Ao V2 VTI: 37.3 cmLV V1 VTI: 22.1 cm ROMMEL(V,D): 2.9 cm2 ROMMEL indexed to BSA (cm^2/m^2): 1.2 Electronically signed by: Fab Moore on Reading Physician:07/04/2017 03:56 PM Brief History 77-year-old gentleman with 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 Patient reports he was feeling "not right" which he interpreted as having low blood sugar. He says he went to lean forward on the counter and remembers waking up with somebody sitting next to him asking if he was okay. He has never had a syncopal event before. He did hit his head and has an abrasion on his superior occiput. He denied having any chest pain, shortness of breath, lightheadedness or dizziness, no nausea vomiting or diarrhea but did state he felt "weird" in his stomach prior to him losing consciousness. He is a resident of [place] he is up in the area to sell his home on [address], he denies being out in the sun for long periods of time or doing strenuous work. The last few days he states he has been having difficulty urinating, urine is passing is dark in color and has a very pungent odor. He states he drank plenty of water did not go long periods without consuming anything. On presentation to the emergency department pulse were stable. Hematology's unremarkable, BUN 32, glucose 127, otherwise CMP unremarkable. Troponin negative. INR 2.8 EKG: Heart rate 54, sinus rhythm, NC interval 236 QTC 458, normal axis, no signs of acute infarct or ischemia. Head CT negative for acute bleed, "subacute versus chronic left temporoparietal lobe infarct." Patient to be admitted for observation with repeat head CT in the morning given head trauma from ground-level fall while therapeutic on warfarin. Hospital Course 77-year-old man with history of CVA, atrial fibrillation, diabetes type II non- insulin using an witnessed syncopal event with loss of consciousness less than 5 minutes while ordering lunch with resultant head trauma, negative head CT in the context of therapeutic INR. Acute witnessed Syncopal event loss of consciousness less than 5 minutes, present on admission, active Etiology includes cardiogenic, metabolic/endocrine, and hypovolemic during patient's medications are flecainide, being outside during the day in the summer heat, and description of feeling "weird" which he attributes to low blood sugar. He is also being treated for hypothyroidism which status of his unknown EKG showed first-degree heart block, bradycardia, possibly due to daily flecainide and metoprolol: Patient is not receptive to any changes to his medications. Will discuss his case with Dr. Cole, patient's fly maker in the a.m. Blood glucose 127 and electrolytes were normal, recheck in the a.m. Troponin was negative. Ordered MRI of brain without contrast as he declined stroke protocol with contrast after I discussed the differences between CT contrast and MR contrast. MRI of brain is negative for acute stroke (though this is a limited study as patient did not agree to| stroke protocol) Ordered ultrasound echo, ultrasound of carotids : The Carotids Is Negative for Severe Stenosis, ultrasound showed Mild concentric left ventricular hypertrophy with ejection fraction 60-65%. Grade II diastolic dysfunction. Orthostatics are ordered and negative Every 4 neurological checks Patient should not drive a motor vehicle until cleared by his fly maker, I discussed this with patient on his discharge date and asked him not to drive a motor vehicle. Staple removal in 5 days at our ER or another facility First-degree heart block with bradycardia, present on admission, active NC interval 236 ms. Cannot say this is asymptomatic given his syncopal event. Metoprolol dose is adjusted to 37.5 mg long-acting daily. Chronic atrial fibrillation, present on admission, stable Patient is in sinus bradycardia, [id number] records not available to assess if this is chronic INR therapeutic, warfarin is restarted on 07/06 Discussed patient's case with patient's fly maker Dr. Cole at [facility] in [place]. He suggests that we adjust patient's metoprolol and flecainide alone. He also agrees that aspirin can be held. Coumadin can be restarted. Dr. Cole will address aspirin when patient returns for follow -up. I have asked Dr. Cole to send records to our hospital, after this couple of visit notes were sent. I have reviewed them personally. Discussed case with Dr. Rosales from cardiology, who agrees with adjusting the Toprol dose leaving flecainide alone. He also agrees that aspirin can be held. He sees no need for aspirin at this time Ground-level fall resulting in head trauma. Present on admission. Active Witnessed ground-level fall, resulting in abrasion of occiput, therapeutic INR Head CT negative Monitor overnight for any neurologic change suggesting intracranial bleed. Repeat h&h showed no concern for acute blood loss Chronic hypertension, present on admission, active Initial blood pressure 120/69, this has risen to up to 155/80 at time of this documentation. Continue antihypertensive valsartan, and metoprolol. I discussed my plan to give him metoprolol 37. 5 in the AM, he is agreeable to this, he did tell me that he used to take higher dose of metoprolol and his dose has been reduced by his fly maker in the past Chronic diabetes mellitus type II, non-insulin using, present on admission, active Patient is on metformin 1000 mg twice a day, serum glucose 127 in the ER. Chronic BPH, present on admission, active Patient describes increasing difficulty urinating, smaller volumes, increased frequency, darker color, and worsening smell. On tamsulosin 0.4 mg every afternoon Urine analysis, complete ordered. Chronic hyperlipidemia, present on admission, active Presumed stable Continue rosuvastatin. History of CVA, present on admission, stable No deficits found on today's exam Continue Coumadin per pharmacy Continue secondary prevention medications: statin, currently holding aspirin GI prophylaxis not indicated Pain management as needed DVT prophylaxis: Patient has therapeutic INR Patient is admitted to observational status with anticipated length of stay less than 2 minutes, based on exam findings, and anticipated complications. Patient will be discharged home tomorrow a.m. CODE STATUS discussed with patient, patient states he wants to be DNR/DNI. Conversation included use of any limited interventions, or modifications to ACLS , patient declined all. Exam Vital Signs (Last) Date Time Temp Pulse Resp B/P Pulse Ox O2 Delivery O2 Flow Rate FiO2 07/06/17 09:45 36.7 63 18 137/74 98 Room Air Exam Gen.: No acute distress, pacing in room HEENT: Normocephalic, atraumatic Heart: Negative for murmurs regular rate and rhythm Lungs: Clear to auscultation no crackles or wheezes Abdomen nondistended Extremities: Negative edema Neurological: No deficits, alert and oriented by 3 Psych: Negative for anger and agitation Test 07/03/17 14:28 07/04/17 06:30 07/04/17 09:35 07/05/17 09:05 White Blood Count 8.1th/mm3 (3.8-10.1) Red Blood Count 4.44mil/mm3 (4.40-5.80) Mean Corpuscular Volume 93.7fL (81-100) Mean Corpuscular Hemoglobin 32.0pg (27.0-35.0) Mean Corpuscular Hemoglobin Concent 34.1% (32.0-37.0) Red Cell Distribution Width 13.2% (12.3-15.4) Platelet Count 192bil/L (150-400) Neutrophils (%) (Auto) 71.8% (40-74) Lymphocytes (%) (Auto) 19.9% (14-46) Monocytes (%) (Auto) 6.7% (4-12) Eosinophils (%) (Auto) 1.2% (0-5) Basophils (%) (Auto) 0% (0-3) Total Bilirubin 0.7mg/dL (0.0-1.2) Aspartate Amino Transf (AST/SGOT) 26U/L (0-50) Alanine Aminotransferase (ALT/SGPT) 23U/L (0-44) Alkaline Phosphatase 61U/L (25-160) Troponin T < 0.010ug/L (0.0-0.011) Total Protein 6.8g/dL (6.4-8.4) Albumin 4.1g/dL (3.4-5.0) Thyroid Stimulating Hormone (TSH) 2.750uIU/mL (0.450-4.500) Sodium Level 142mEq/L (134-144) Potassium Level 4.3mEq/L (3.5-5.2) Chloride Level 103mEq/L (97-108) Carbon Dioxide Level 27mmol/L (18-29) Blood Urea Nitrogen 33mg/dL (8-27) Creatinine 0.93mg/dL (0.76-1.27) Estimat Glomerular Filtration Rate 84mL/min (>59) Glucose Level 103mg/dL (60-99) Calcium Level 8.5mg/dL (8.5-10.1) Urine Color Yellow (YELLOW) Urine Appearance Clear (CLEAR,HAZY) Urine pH 6.0 (5.0-8.0) Urine Specific [place] 1.010 (1.003-1.035) Urine Protein Negativemg/dL (NEG,TRACE) Urine Glucose (UA) Negativemg/dL (NEGATIVE) Urine Ketones Negativemg/dL (NEGATIVE) Urine Occult Blood Small (NEGATIVE) Urine Nitrite Negative (NEGATIVE) Urine Bilirubin Negative (NEGATIVE) Urine Urobilinogen Normalmg/dL (NORMAL) Urine Leukocyte Esterase Negative (NEGATIVE) Urine RBC 3-10/hpf (0-2) Urine WBC 0-5/hpf (0-5) Urine Epithelial Cells Occasional/hpf (NONE-MOD) Urine Crystals None seen (NONE SEEN) Urine Bacteria None/hpf (NONE-FEW) Urine Hyaline Casts None/lpf (NONE) Urine Granular Casts Occasional (NONE SEEN) Urine Waxy Casts None seen (NONE SEEN) Urine Red Blood Cell Casts None seen (NONE SEEN) Urine White Blood Cell Casts None seen (NONE SEEN) Urine Mucus None seen (None Seen) Urine Trichomonas None seen (NONE SEEN) Urine Yeast None (NONE SEEN) Urinalysis Comment None Urine Culture Reflexed Not indicated Hemoglobin 14.2g/dL (13.8-17.2) Hematocrit 42.5% (41.0-50.0) Test 07/06/17 07:45 Prothrombin Time 27.4sec (8.1-12.5) Prothromb Time International Ratio 2.51ratio Discharge Medications Discharge Medications Allopurinol (Allopurinol) 300 Mg Tablet 300 MG PO DAILY (Reported) Flecainide Acetate (Flecainide Acetate) 100 Mg Tablet 100 MG PO BID (Reported) Levothyroxine (Levothyroxine) 75 Mcg Tablet 75 MCG PO DAILY (Reported) Metformin ER (Metformin ER) 1,000 Mg Tablet 1,000 MG PO BIDWM (Reported) Metoprolol Succinate ER (Metoprolol Succinate ER) 25 Mg Tab.er.24h 37.5 MG PO DAILYWD Prescribed by: ANANLISE ELLIOTT DO Rosuvastatin Calcium (Crestor) 40 Mg Tablet 40 MG PO DAILY (Reported) Tamsulosin (Flomax) 0.4 Mg Capsule 0.4 MG PO QPM (Reported) Valsartan (Valsartan) 320 Mg Tablet 320 MG PO DAILY (Reported) Warfarin Sodium (Warfarin Sodium) 5 Mg Tablet 5 MG PO ALL OTHER DAYS (Reported) Warfarin Sodium (Warfarin Sodium) 2.5 Mg Tablet 2.5 MG PO TUES, SAT (Reported) Followup Plan Follow-up plan F/U with Dr. Paul Cole fly maker in 7-10 days F/U INR in one week Discharge Diet: Heart Healthy Discharge Activity: Limited until seen by PCP Patient Instructions Please see Dr. Cole your fly maker in 7-[address] no drive a Motor Vehicle until you are cleared by your fly maker Please note changes to your metoprolol dosing Please hold your aspirin till you see Dr. Cole Time spent Greater than 30 minutes was spent in preparation of discharge with greater than 50% of that time dedicated to patient counseling and coordination of care. Annalise Elliott DO Jul 06, 2017 10:50 Urinalysis Comment None Urine Culture Reflexed Not indicated Hemoglobin 14.2g/dL (13.8-17.2) Hematocrit 42.5% (41.0-50.0) Test 07/06/17 07:45 Prothrombin Time 27.4sec (8.1-12.5) Prothromb Time International Ratio 2.51ratio Discharge Medications Discharge Medications Allopurinol (Allopurinol) 300 Mg Tablet 300 MG PO DAILY (Reported) Flecainide Acetate (Flecainide Acetate) 100 Mg Tablet 100 MG PO BID (Reported) Levothyroxine (Levothyroxine) 75 Mcg Tablet 75 MCG PO DAILY (Reported) Metformin ER (Metformin ER) 1,000 Mg Tablet 1,000 MG PO BIDWM (Reported) Metoprolol Succinate ER (Metoprolol Succinate ER) 25 Mg Tab.er.24h 37.5 MG PO DAILYWD Prescribed by: ANNALISE ELLIOTT DO Rosuvastatin Calcium (Crestor) 40 Mg Tablet 40 MG PO DAILY (Reported) Tamsulosin (Flomax) 0.4 Mg Capsule 0.4 MG PO QPM (Reported) Valsartan (Valsartan) 320 Mg Tablet 320 MG PO DAILY (Reported) Warfarin Sodium (Warfarin Sodium) 5 Mg Tablet 5 MG PO ALL OTHER DAYS (Reported) Warfarin Sodium (Warfarin Sodium) 2.5 Mg Tablet 2.5 MG PO TUES, SAT (Reported) Followup Plan Follow-up plan F/U with Dr. Paul Cole fly maker in 7-10 days F/U INR in one week Discharge Diet: Heart Healthy Discharge Activity: Limited until seen by PCP Patient Instructions Please see Dr. Cole your fly maker in 7-10 days. [address] no drive a Motor Vehicle until you are cleared by your fly maker Please note changes to your metoprolol dosing Please hold your aspirin till you see Annalise Villagomez DO Jul 06, 2017 10:50
--- NOTE | 2017-07-06 11:53 | NUR ---
Discharge Patient given discharge orders. Patient given hard copy of prescription. Patient given medication list with written instructions when next dose due. Patient informed of medications to stop taking. Patient given follow up instructions. Patient talked to about not driving until cleared by bullet assembly press setter operator. Patient IV removed fully intact and asymptomatic. Patient telemetry removed and patient monitor informed. Patient awaiting transportation for discharge.
--- NOTE | 2017-07-06 13:58 | NUR ---
Social Work: Discharge Data: Pt is on day 3 of hospitalization. EMR reviewed. D/C orders are in. No d/c planning needs identified. HARDWARE MANAGER will continue to follow if needs arise. Assessment: Pt who is independent at baseline, currently capable of self care. Plan: Pt will d/c home via POV today. No d/c planning needs identified. HARDWARE MANAGER will continue to follow if needs arise. KERRI Gifford
[2017-07-06] MEDS ORDERED: MeTOProlol XL 25 mg ER24 Tablet PO SCH (17:30)
[2017-07-06] MEDS ORDERED: MeTOProlol XL 50 mg ER24 Tablet PO SCH (17:30)
== END 2017-07-06 12:15 | disposition home or self-care (01) ==
LOC: SED 14:08 → MPC 19:16
PROVIDERS: ADMIT Hospitalist; ATTEND Hospitalist
DX: R55 Syncope and collapse (principal); R00.1 Bradycardia, unspecified; I44.0 Atrioventricular block, first degree; I48.2 Chronic atrial fibrillation; I10 Essential (primary) hypertension; E11.9 Type 2 diabetes mellitus without complications; S00.91XA Abrasion of unspecified part of head, initial encounter; E78.5 Hyperlipidemia, unspecified; N40.0 Benign prostatic hyperplasia without lower urinary tract symptoms; W18.39XA Other fall on same level, initial encounter; Y93.89 Activity, other specified; Y92.89 Other specified places as the place of occurrence of the external cause; Y99.8 Other external cause status; Z79.01 Long term (current) use of anticoagulants; Z79.84 Long term (current) use of oral hypoglycemic drugs; Z79.82 Long term (current) use of aspirin; Z86.73 Personal history of transient ischemic attack (TIA), and cerebral infarction without residual deficits
CPT/HCPCS: 12002; 36415; 70450; 70551; 80048; 80053; 81000; 84443; 84484; 85014; 85018; 85025; 85610; 93005; 93880; 96374; 99285; C8929; G0378; J2405